=== PATIENT | female | born 1955 ===

== ENCOUNTER 2023-12-13 21:46 | Inpatient (IN) | payer MEDICARE, OTHER ==
[~2023-12-13] VITALS: Ht 165.1 cm; Wt 50.3 kg
[2023-12-13] MEDS ORDERED: LISI20TA30 PO (22:27)
[2023-12-13] MEDS ORDERED: SERT50TA PO (22:27)
[2023-12-14 01:30] VITALS: BP 111/69; TEMP 97.4; O2SAT 96
[2023-12-14] MEDS ORDERED: TEMAZEPAM 7.5 MG CAPSULE PO PRN (01:45)
[2023-12-14] MEDS ORDERED: CLONAZEPAM 0.5 MG TABLET PO PRN (01:45)
[2023-12-14] MEDS ORDERED: BLOOD SUGAR DIAGNOSTIC 1 EACH STRIP VI ONE (01:45)
[2023-12-14] MEDS ORDERED: ACETAMINOPHEN 325 MG TABLET PO PRN (01:45)
[2023-12-14] MEDS ORDERED: MAG HYDROX/AL HYDROX/SIMETH 30 ML LIQUID UDC PO PRN (01:45)
[2023-12-14] MEDS ORDERED: MAGNESIUM HYDROXIDE 30 ML LIQUID UDC PO PRN (01:45)
[2023-12-14 08:40] VITALS: BP 94/70; TEMP 98.5; O2SAT 98
[2023-12-14 16:00] VITALS: BP 95/65; TEMP 98.3; O2SAT 99
[2023-12-14 20:06] VITALS: BP 100/62; TEMP 98.4; O2SAT 98
[2023-12-15 07:57] VITALS: BP 112/72; TEMP 97.8; O2SAT 100
[2023-12-15] MEDS: LISINOPRIL 20 MG TABLET PO SCH (09:55)
[2023-12-15] MEDS: SERTRALINE HCL 50 MG TABLET PO SCH (09:55)
[2023-12-15 16:24] VITALS: BP 99/52; TEMP 98; O2SAT 99
[2023-12-15 19:58] VITALS: BP 101/56; TEMP 97.9; O2SAT 98
[2023-12-16 07:41] VITALS: BP 102/56; TEMP 97.8; O2SAT 98
[2023-12-16] MEDS: LISINOPRIL 20 MG TABLET PO SCH (09:00)
[2023-12-16] MEDS: SERTRALINE HCL 50 MG TABLET PO SCH (09:09)
[2023-12-16 15:35] VITALS: BP 113/67; TEMP 98.8; O2SAT 98
[2023-12-16] MEDS: ENSURE ENLIVE (VAN) 240 ML LIQUID PO SCH (17:00)
[2023-12-16 20:08] VITALS: BP 112/60; TEMP 98.2; O2SAT 96
[2023-12-17 07:47] VITALS: BP 102/61; TEMP 98.4; O2SAT 98
[2023-12-17] MEDS: ENSURE ENLIVE (VAN) 240 ML LIQUID PO SCH ×2 (08:00→17:00)
[2023-12-17] MEDS: LISINOPRIL 20 MG TABLET PO SCH (09:00)
[2023-12-17] MEDS: SERTRALINE HCL 50 MG TABLET PO SCH (09:07)
[2023-12-17 15:48] VITALS: BP 116/59; TEMP 98.2; O2SAT 99
[2023-12-17 20:00] VITALS: BP 120/67; TEMP 97.9; O2SAT 97
[2023-12-18 08:00] VITALS: BP 117/83; TEMP 98; O2SAT 98
[2023-12-18] MEDS: SERTRALINE HCL 50 MG TABLET PO SCH (09:31)
[2023-12-18] MEDS: ENSURE ENLIVE (VAN) 240 ML LIQUID PO SCH ×2 (09:32→18:01)
[2023-12-18] MEDS: LISINOPRIL 20 MG TABLET PO SCH (09:32)
[2023-12-18 15:31] VITALS: BP 102/77; TEMP 98.8; O2SAT 100
[2023-12-18 20:00] VITALS: BP 133/84; TEMP 98; O2SAT 98
[2023-12-19 08:53] VITALS: BP 103/72; TEMP 98.2; O2SAT 96
[2023-12-19] MEDS: LISINOPRIL 20 MG TABLET PO SCH (09:00)
[2023-12-19] MEDS: SERTRALINE HCL 50 MG TABLET PO SCH (09:09)
[2023-12-19] MEDS: ENSURE ENLIVE (VAN) 240 ML LIQUID PO SCH ×2 (09:10→17:48)
[2023-12-19 15:26] VITALS: BP 96/69; TEMP 98.2; O2SAT 98
[2023-12-19 20:00] VITALS: BP 111/69; TEMP 98.2; O2SAT 97
[2023-12-20 07:44] VITALS: BP 114/69; TEMP 98.3; O2SAT 99
[2023-12-20] MEDS: SERTRALINE HCL 50 MG TABLET PO SCH (08:19)
[2023-12-20] MEDS: ENSURE ENLIVE (VAN) 240 ML LIQUID PO SCH ×3 (08:19→17:22)
[2023-12-20] MEDS: LISINOPRIL 20 MG TABLET PO SCH (08:19)
[2023-12-20 16:11] VITALS: BP 106/64; TEMP 98.1; O2SAT 100
[2023-12-20 20:00] VITALS: BP 124/72; TEMP 98; O2SAT 98
[2023-12-21 07:56] VITALS: BP 123/71; TEMP 98.3; O2SAT 98
[2023-12-21] MEDS: SERTRALINE HCL 50 MG TABLET PO SCH (08:47)
[2023-12-21] MEDS: LISINOPRIL 20 MG TABLET PO SCH (08:47)
[2023-12-21] MEDS: ENSURE ENLIVE (VAN) 240 ML LIQUID PO SCH ×3 (09:00→17:00)
[2023-12-21 16:05] VITALS: BP 118/79; TEMP 98.2; O2SAT 99
[2023-12-21 20:00] VITALS: BP 90/58; TEMP 99; O2SAT 97
[2023-12-22 07:51] VITALS: BP 121/79; TEMP 98.1; O2SAT 99
[2023-12-22] MEDS: SERTRALINE HCL 50 MG TABLET PO SCH (08:52)
[2023-12-22] MEDS: LISINOPRIL 20 MG TABLET PO SCH (08:52)
[2023-12-22] MEDS: ENSURE ENLIVE (VAN) 240 ML LIQUID PO SCH ×3 (08:53→17:06)
[2023-12-22 16:04] VITALS: BP 109/63; TEMP 98.3; O2SAT 99
[2023-12-22 20:00] VITALS: BP 113/54; TEMP 98.8
[2023-12-23 07:51] VITALS: BP 106/75; TEMP 98.2; O2SAT 98
[2023-12-23] MEDS: ENSURE ENLIVE (VAN) 240 ML LIQUID PO SCH ×3 (09:20→17:49)
[2023-12-23] MEDS: SERTRALINE HCL 50 MG TABLET PO SCH (09:22)
[2023-12-23] MEDS: LISINOPRIL 20 MG TABLET PO SCH (09:25)
[2023-12-23 15:16] VITALS: BP 115/60; TEMP 97.8; O2SAT 100
[2023-12-23 20:00] VITALS: BP 113/58; TEMP 98; O2SAT 99
[2023-12-24 07:58] VITALS: BP 115/69; TEMP 98; O2SAT 98
[2023-12-24] MEDS: SERTRALINE HCL 50 MG TABLET PO SCH (09:00)
[2023-12-24] MEDS: LISINOPRIL 20 MG TABLET PO SCH (09:00)
[2023-12-24] MEDS: ENSURE ENLIVE (VAN) 240 ML LIQUID PO SCH ×3 (09:03→17:00)
[2023-12-24 15:08] VITALS: BP 112/64; TEMP 98; O2SAT 98
[2023-12-24 20:13] VITALS: BP 122/62; TEMP 97.9; O2SAT 96
[2023-12-25 08:19] VITALS: BP 121/64; TEMP 97.8; O2SAT 99
[2023-12-25] MEDS: LISINOPRIL 20 MG TABLET PO SCH (09:10)
[2023-12-25] MEDS: SERTRALINE HCL 50 MG TABLET PO SCH (09:11)
[2023-12-25] MEDS: ENSURE ENLIVE (VAN) 240 ML LIQUID PO SCH ×3 (09:12→17:13)
[2023-12-25 15:35] VITALS: BP 116/68; TEMP 97.4; O2SAT 99
[2023-12-25 20:00] VITALS: BP 107/65; TEMP 97.8; O2SAT 96
[2023-12-26] MEDS: SERTRALINE HCL 50 MG TABLET PO SCH (08:30)
[2023-12-26] MEDS: ENSURE ENLIVE (VAN) 240 ML LIQUID PO SCH (08:31)
[2023-12-26] MEDS: LISINOPRIL 20 MG TABLET PO SCH (08:31)
[2023-12-26 08:45] VITALS: BP 118/67; TEMP 98; O2SAT 98
== END 2023-12-26 15:22 | DRG 885 ==
LOC: ER 21:46 → GPS 23:43
PROVIDERS: ADMIT Psychiatry & Neurology Psychiatry; ATTEND Nurse Practitioner Acute Care
DX: F33.2 Major depressive disorder, recurrent severe without psychotic features (principal); R45.851 Suicidal ideations; Z59.02 Unsheltered homelessness; I10 Essential (primary) hypertension; Z60.8 Other problems related to social environment; R45.850 Homicidal ideations; F10.10 Alcohol abuse, uncomplicated
CPT/HCPCS: 36415